=== PATIENT | male | born 1970 ===

== ENCOUNTER → 2016-03-01 | Outpatient (CLI) | payer OTHER | LOC: BHFA 10:15 | PROVIDERS: ATTEND Internal Medicine Interventional Cardiology | DX: I21.3 ST elevation (STEMI) myocardial infarction of unspecified site (principal); I25.10 Atherosclerotic heart disease of native coronary artery without angina pectoris; E78.5 Hyperlipidemia, unspecified; B20 Human immunodeficiency virus [HIV] disease ==